=== PATIENT | male | born 1945 | race Caucasian/White ===

== ENCOUNTER 2021-04-21 12:43 | Outpatient (CLI) | payer MEDICARE, SELFPAY ==
--- NOTE | ~2021-04-21 | US_ITS ---
EXAMINATION: US scrotum doppler DATE: 04/21/2021 13:25 INDICATION: Left testicular pain TECHNIQUE: Testicular sonogram utilizing grayscale and Doppler COMPARISON: 03/31/2004 FINDINGS: The right testis measures 3.5 x 3.6 x 2.7 cm. The left testis measures 4.6 x 2.7 x 2.7 cm. Symmetric normal grayscale appearance to both testes. There is normal vascular flow to both testes. The right e pididymis is normal with normal vascular flow. 8 mm anechoic left epididymal cyst. The left epididymi s is otherwise normal with normal vascular flow. Moderate-sized right hydrocele. There is no varicoce le or left hydrocele. IMPRESSION: 1. Moderate-sized right hydrocele and 8 mm left epididymal cyst. Otherwise normal scrotal ultrasound . Reviewed, dictated and finalized at location A. [employer]ING MACHINE OPERATOR IMPRESSION: 1. Moderate-sized right hydrocele and 8 mm left epididymal cyst. Otherwise nor mal scrotal ultrasound.
== END 2021-04-21 12:44 | disposition home or self-care (01) ==
LOC: ANHIMG 12:52
DX: N50.812 Left testicular pain (principal); N43.3 Hydrocele, unspecified; N50.3 Cyst of epididymis
CPT/HCPCS: 76870; 93976

== ENCOUNTER 2023-06-22 10:27 | Outpatient (CLI) | payer MEDICARE, SELFPAY ==
--- NOTE | 2023-06-22 | ECG_ITS ---
Measurements Intervals [place] Rate: 137 P: [place]: 0 QRS: 7 QRSD: 91 T: 21 QT: 272 QTc: 412 Interpretive Statements ATRIAL FIBRILLATION WITH RAPID VENTRICULAR RESPONSE DELAYED PRECORDIAL R/S TRANSITION BORDERLINE T WAVE ABNORMALITY- INFERIOR LEADS ABNORMAL ECG NO PREVIOUS ECG AVAILABLE FOR COMPARISON Electronically Signed On 06-22-2023 11:07:36 CDT by Yoandy Camarena D.O.
--- NOTE | 2023-06-23 08:10 | PCCARD ---
STAT READ EKG - PATIENT HAD EKG 06/22/23. PCP WANTED THE PATIENT TO COME HAVE THE STAT EKG 06/21/23 BUT THE PATIENT WAITED UNTIL 06/22/23 TO GET THE EKG DONE. NOTIFIED DR CASTRO OF A STAT EKG, WHICH HE READ. PER DR CASTRO'S INSTRUCTIONS THE PCP WAS NOTIFIED BY LEAVING A MESSAGE ON PCP VOICEMAIL. ALSO FAXED EKG TO PCP. THE PATIENT THEN INFORMED US THAT PCP OFFICE IS CLOSED ON WEDNESDAYS. WE INSTRUCTED THE PATIENT IF HE FEELS WORSE, HAS SHORTNESS OF BREATH OR CHEST PAIN THAT HE SHOULD GO TO THE ER OR CALL 911.
== END 2023-06-22 10:28 | disposition home or self-care (01) ==
LOC: ANHLAB 10:44 → ANHCARD 10:50
PROVIDERS: Visit Provider Nurse Practitioner
DX: R93.1 Abnormal findings on diagnostic imaging of heart and coronary circulation (principal); I48.20 Chronic atrial fibrillation, unspecified; R94.31 Abnormal electrocardiogram [ECG] [EKG]
CPT/HCPCS: 93005